=== PATIENT | male | born 1975 | race African-American/Black ===

== ENCOUNTER → 2017-10-25 | Day surgery (SDC) | payer OTHER, MEDICAID ==
[~2017-10-25] MED LIST: IBUPROFEN 200200 M1 PO; NORVASC5 MG PO; PERCOCET PO
--- NOTE | 2017-10-25 13:59 | EKG ---
[place] [address] ELECTROCARDIOGRAM REPORT Name: EVARISTO SORENSON JR Room: [facility]#: [id number] Admission: 10/25/17 Attend Phys: Zacarias Moreno II Discharge: Date of : 75 Report #: [id number] THIS REPORT FOR: //name// [facility] Test Date: 2017-10-25 Test Time: 08:47:47 Pat Name: EVARISTO SORENSON Department: Room: Gender: M Rv Mechanic: : 1975 Requested By: Zacarias Moreno Order Number: [id number] [place] JUAREZ: Graham Kenyon Measurements Intervals [place] Rate: 55 P: 63 DE: 169 QRS: -22 QRSD: 106 T: -14 QT: 427 QTc: 409 Interpretive Statements Sinus rhythm Inferior infarct, old No previous ECG available for comparison Electronically Signed On 10-25-2017 13:59:32 CDT by Graham Kenyon [email or web address] <ELECTRONICALLY SIGNED> By: Graham Kenyon MD, [facility] 10/25/17 1359 0847 0847 Graham Kenyon MD, FACC /EPI
--- NOTE | 2017-11-21 10:42 | OP ---
[address] [address] OPERATIVE REPORT Name: EVARISTO SORENSON JR Room: [facility]#: [id number] Admission: 10/25/17 Attend Phys: Zacarias Moreno II Discharge: Date of : 75 Report #: [id number] THIS REPORT FOR: //name// CC: FAM unknown Zacarias Moreno DATE OF SERVICE: 10/25/2017 PREOPERATIVE DIAGNOSIS: Right knee anterior cruciate ligament tear. POSTOPERATIVE DIAGNOSIS: 1. Right knee anterior cruciate ligament tear. 2. Lateral meniscus tear. 3. Grade 3 chondromalacia, medial femoral condyle with osteochondral defect. 4. 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 PROCEDURE PERFORMED: 1. Right knee arthroscopic surgery with ACL reconstruction with allograft. 2. Partial lateral meniscectomy. 3. Abrasion chondroplasty down to bleeding bone along the medial femoral condyle and lateral tibial plateau. SURGEON: Zacarias Moreno II, DO FISHER TERRAPIN: DIPTI Lund ANESTHESIA: Per operative record. ESTIMATED BLOOD LOSS: Minimal. ANTIBIOTICS: Per operative record. DRAINS: None. COMPLICATIONS: None. DISPOSITION: Stable to recovery room. DESCRIPTION OF PROCEDURE: The patient was taken to the operative suite, placed supine on the operating table and given appropriate anesthesia. The patient's right lower extremity was sterilely prepped and draped in a well-padded orthopedic knee menendze. Surgery began with midline portal incision. The arthroscope was advanced at the joint. There was found to be an ACL tear noted to the mid portion and femoral attachment of the ACL. This was debrided using shaver back to good stable margin along the tibia to remove excess tissue that was impinging in the joint. There was also found to be a lateral meniscus tear [address] [address] OPERATIVE REPORT Name: EVARISTO SORENSON JR Room: [facility]#: [id number] Admission: 10/25/17 Attend Phys: Zacarias Moreno II Discharge: Date of : 75 Report #: [id number] going to the posterior lateral meniscus, which was around the lateral margin. Utilizing shaver and baskets, a lateral meniscectomy was performed along the posterior horn of the lateral meniscus. There was also found to be grade 3 chondromalacia along the lateral tibial plateau in this region. Abrasion chondroplasty performed on the lateral trochanter tibial plateau down to bleeding bone and then smoothed utilizing Coblation wand in appropriate fashion. On the medial femoral condyle, there was noted to be an osteochondral defect along the near weightbearing portion of the medial femoral condyle. Abrasion chondroplasty was performed along the medial femoral condyle in appropriate fashion down to bleeding bone and then smoothed using Coblation wand. Attention was then turned back to the ACL. The appropriate graft was selected. It was previously tensioned and placed in the button to continue preparation. This was sized to appropriate size. The retrodrill for the tibia was then aligned in appropriate fashion and drilled out through the distal portion of the tibia. top guide was then placed on the posterior femur on the most lateral margin and the guidepin placed up and out through the lateral cortex of the femur. Femoral canal was then reamed in appropriate fashion and excess bone and cartilage were removed using shaver and irrigation. The ACL was then taken along its Endobutton and transferred up in through the tibial canal up into the femur. Endobutton was deployed and the graft was then cinched into position within the femur. It was then snugged down with multiple flexions and extensions of the knee into the tibia and secured using the tibial screw. The excess ACL graft was then snipped from the lateral and outside margin. It there was then probed and the joint showed to be intact. There was a negative drawer test at the completion of the case and there was no evidence of penetration of the screw within the joint. Final irrigation of the knee was performed. It was drained with copious fluid, closed with 4-0 nylon in simple fashion. Dermabond, sterile dressing, and Reji wrap were applied. The patient was transported to recovery in stable condition. Counts were correct throughout the procedure. <ELECTRONICALLY SIGNED> By: Zacarias Moreno II, DO 11/21/17 1042 0724 [id number] Moreno II, DO /nt
== END | disposition home or self-care (01) ==
LOC: M.SUR 08:12
DX: S83.511A Sprain of anterior cruciate ligament of right knee, initial encounter (principal); S83.281A Other tear of lateral meniscus, current injury, right knee, initial encounter; M94.261 Chondromalacia, right knee; M94.8X6 Other specified disorders of cartilage, lower leg; Z79.899 Other long term (current) drug therapy; Z79.891 Long term (current) use of opiate analgesic; X58.XXXA Exposure to other specified factors, initial encounter; Y93.89 Activity, other specified; Y92.89 Other specified places as the place of occurrence of the external cause; Y99.8 Other external cause status